=== PATIENT | male | born 1965 | race Caucasian/White ===

== ENCOUNTER → 2018-02-11 | Outpatient (CLI) | payer BC ==
[~2018-02-11] MED LIST: AMLODIPINE BESY10 MG PO; BYSTOLIC10 MG PO
--- NOTE | 2018-02-11 12:37 | Diagnostic Imaging Report ---
PROCEDURE: US THYROID COMPARISON: None. INDICATIONS:GOITER TECHNIQUE: Transverse and longitudinal bond-scale sonographic images of the thyroid were obtained and supplemented with color doppler. FINDINGS: The right thyroid lobe measures 5.3 x 2 x 2 cm, the left thyroid lobe measures 5.2 x 1.8 x 1.8 cm, and the isthmus measures 0.7 cm. The thyroid is mildly heterogeneous without evidence of discrete nodule. CONCLUSION: Mildly heterogeneous appearance of the thyroid without evidence of discrete nodule. Dictated by: ANAI AZUL M.D. on 02/11/2018 at 9:48 Electronically approved by: ANAI AZUL M.D. on 02/11/2018 at 9:48
== END ==
LOC: US 08:29
PROVIDERS: ATTEND Family Medicine
DX: E04.9 Nontoxic goiter, unspecified (principal)
CPT/HCPCS: 76536